=== PATIENT | male | born 1975 | race Caucasian/White ===

== ENCOUNTER 2017-02-01 15:42 | Emergency (ER) | payer OTHER ==
[2017-02-01] MEDS ORDERED: DIPH,PERTUS(ACELL)TETVAC-LF 0.5 ML VIAL IM ONE (16:03)
[2017-02-01] MEDS ORDERED: KETOROLAC 30 MG/ML 1 ML VIAL IM STA (16:03)
--- NOTE | 2017-02-01 16:25 | XR ---
EXAMINATION TYPE: XR hand complete RT DATE OF EXAM: 02/01/2017 4:19 PM COMPARISON: NONE HISTORY: Pain right third and fourth digits TECHNIQUE: 3 view right hand FINDINGS: Some mild soft tissue swelling over the fourth digit may be present. Mild nondisplaced tuft of the fourth digit may be present. There is a lucency within the distal phalanx proximal portion of the third digit. Nondisplaced fracture is likely present. Transverse fracture of the metaphyseal pro ximal portion distal phalanx fourth digit is also present. IMPRESSION: 1. Nondisplaced tuft fourth digit fracture. There is also a transverse proximal portion distal phala nx fracture. 2. Nondisplaced fracture distal phalanx third digit 3. Mild soft tissue swelling fourth and possibly third distal digit.
[2017-02-01] MEDS ORDERED: ceFAZolin 1,000 MG VIAL IM STA (16:59)
--- NOTE | 2017-02-01 17:44 | ED ---
Upper Extremity HPI - General Chief Complaint: Extremity Injury, Upper Stated Complaint: [facility] Left hand crushing injury Time Seen by Provider: 02/01/17 15:53 Source: patient Mode of arrival: ambulatory Limitations: no limitations - History of Present Illness Initial Comments: Patient is a 41-year-old male who presents for evaluation after crushing his right hand underneath a 7-800 pound metal Hilton. Past medical history as below. This injury occurred at work and just prior to arrival. He is right- handed. He was pulling out the [place] and lost control of it and it landed on his right hand. He immediately pulled it away and was not crushed underneath. He can move his 5 digits. He had full opposition of his right thumb. He does not know when his last tetanus was. Bleeding is currently controlled. He is not on any aspirin or blood thinners. No ALLERGIES to medications. He denies fever, chills, headache, changes of vision, URI symptoms, shortness of breath, cough, chest pain, nausea, vomiting, diarrhea, pain or burning with urination. - Related Data Home Medications Medication Instructions Recorded Confirmed Ibuprofen [Motrin] 200 - 400 mg PO Q6HR PRN 02/01/17 02/01/17 Previous Rx's Medication Instructions Recorded Cephalexin [Keflex] 500 mg PO Q12HR 5 Days 02/01/17 Docusate [Colace] 100 mg PO DAILY PRN #20 capsule 02/01/17 HYDROcodone/APAP 5-325MG [Fosters 1 - 2 tab PO Q6HR PRN #15 tab 02/01/17 5-325] Allergies Allergy/AdvReac Type Severity Reaction Status Date / Time codeine AdvReac RESTLESS Verified 02/01/17 16:20 LEGS/INSOMNIA Review of Systems ROS Statement: Those systems with pertinent positive or pertinent negative responses have been documented in the HPI. ROS Other: All systems not noted in ROS Statement are negative. Past Medical History Past Medical History: No Reported History History of Any Multi-Drug Resistant Organisms: None Reported Past Surgical History: No Surgical Hx Reported Past Psychological History: No Psychological Hx Reported Smoking Status: Current every day smoker Past Alcohol Use History: Occasional Past Drug Use History: None Reported General Exam Limitations: no limitations General appearance: alert, in no apparent distress, other (No acute distress) Head exam: Present: atraumatic, normocephalic, normal inspection, other (No signs of head trauma) Eye exam: Present: normal appearance, PERRL, EOMI. Absent: scleral icterus, conjunctival injection, periorbital swelling ENT exam: Present: normal exam, mucous membranes moist Neck exam: Present: normal inspection. Absent: tenderness, meningismus, lymphadenopathy Respiratory exam: Present: normal lung sounds bilaterally. Absent: respiratory distress, wheezes, rales, rhonchi, stridor Cardiovascular Exam: Present: regular rate, normal rhythm, normal heart sounds. Absent: systolic murmur, diastolic murmur, rubs, gallop, clicks GI/Abdominal exam: Present: soft, normal bowel sounds. Absent: distended, tenderness, guarding, rebound, rigid Extremities exam: Present: normal inspection, tenderness, normal capillary refill, joint swelling, other (Full Refill in all 5 digits of his right hand. Limited flexion extension of the third fourth and fifth digits of the right hand. There are superficial palmar lacerations to the third fourth and fifth digit. Does not seem to be involving the joint capsule. On the dorsal aspect of his right hand, there is a small laceration to the distal phalanx of the third digit.). Absent: pedal edema, calf tenderness Back exam: Present: normal inspection Neurological exam: Present: alert, oriented X3, CN II-XII intact Psychiatric exam: Present: normal affect, normal mood Skin exam: Present: warm, dry, intact, normal color. Absent: rash Course Vital Signs 02/01/17 02/01/17 15:44 17:47 Temperature 97.7 F 98.6 F Pulse Rate 85 71 Respiratory 18 14 Rate Blood Pressure 139/89 129/73 O2 Sat by Pulse 96 95 Oximetry Procedures - Orthopedic Splinting/Casting Injury #1 Side: right Upper Extremity Injury Location: hand Upper Extremity Immobilizer: wrist splint Additional Comments: Placed a splint over the dorsal aspect of his right hands. Tolerated well. Medical Decision Making - Medical Decision Making Patient presents for evaluation after a 7 800 pound metal object fell on his right hand. We'll order right hand plain films, soak in Betadine with normal saline, Toradol, Tdap. -Imaging as below. Patient has fractures of the distal phalanx of the third and fourth digits. Thoroughly irrigated with 2 L normal saline over the lacerations. Ordered 2 g of cefazolin. Page to hand surgery for further recommendations. 1735: Discussed with the [employer] of Dr. Richard Damon. Comfortable with placing in a nonadherent dressing with bacitracin. The wound is very dirty and concerned about closing the wound as there is oil and grease all over his hands. We will splint in a position of comfort. Appointment at [address] Richard Damon' s office for further workup. Requesting the patient be discharged home with pain medications and 500 mg Keflex twice a day for 5 days. -Splinted the patient. Tolerated well. Discussed follow-up with the patient. He will go tomorrow. Discussed signs and symptoms on when to return to the emergency department for further evaluation. Comfortable discharge home and will follow-up with orthopedics tomorrow morning. Encouraged to elevate the hand above the heart. Take pain medications as prescribed. Discussed signs and symptoms of serious infection and when to return. Disposition Clinical Impression: Phalanx, distal fracture of finger, Finger laceration Disposition: HOME SELF-CARE Condition: Good Instructions: Hand Fracture (ED), Laceration (ED) Prescriptions: Cephalexin [Keflex] 500 mg PO Q12HR 5 Days Docusate [Colace] 100 mg PO DAILY PRN #20 capsule PRN Reason: Constipation HYDROcodone/APAP 5-325MG [Fosters 5-325] 1 - 2 tab PO Q6HR PRN #15 tab PRN Reason: Pain Referrals: None,Stated [Primary Care Provider] - 1-2 days Rafael Damon DO [Doctor of Osteopathic Medicine] - 1-2 days (Appointment at 09 on 02/02/17)
[2017-02-01 17:52] VITALS: BP 129/73; PULSE 71; RESP 14; TEMP 98.6
== END 2017-02-01 17:58 | disposition home or self-care (01) ==
LOC: EC 15:42
DX: S62.634A Displaced fracture of distal phalanx of right ring finger, initial encounter for closed fracture (principal); S62.636A Displaced fracture of distal phalanx of right little finger, initial encounter for closed fracture; F17.200 Nicotine dependence, unspecified, uncomplicated; Z23 Encounter for immunization; Z88.5 Allergy status to narcotic agent; W23.0XXA Caught, crushed, jammed, or pinched between moving objects, initial encounter; Y93.89 Activity, other specified; Y92.69 Other specified industrial and construction area as the place of occurrence of the external cause; Y99.0 Civilian activity done for income or pay
CPT/HCPCS: 73130; 90715; 99283; 96372 ×2; 90471; J0690; J1885